=== PATIENT | male | born 1970 | race Caucasian/White ===

== ENCOUNTER 2020-04-04 09:09 | Emergency (ER) | payer BC ==
[2020-04-04] MEDS ORDERED: SODIUM CHLORIDE 0.9% 1000 ML INFUS.BAG IV ONE (09:17)
[2020-04-04] MEDS ORDERED: ONDANSETRON 4 MG/2 ML VIAL IVPUSH ONE (09:17)
[2020-04-04] MEDS ORDERED: morphine CARPU-JECT 4 MG/1 ML DISP.SYRIN IVPUSH ONE (09:17)
[2020-04-04 09:18] VITALS: BP 146/94; PULSE 66; TEMP 98.7; BMI 29.9
[2020-04-04] MEDS ORDERED: ONDANSETRON 4 MG/2 ML VIAL ONE (09:20)
[2020-04-04] MEDS ORDERED: morphine SULFATE 4 MG/ML VIAL ONE (09:20)
--- NOTE | 2020-04-04 09:21 | PDOC ---
History of Present Illness - General Chief Complaint: Pain Stated Complaint: LEFT FLANK PAIN Time Seen by Provider: 04/04/20 09:16 History Source: Patient Exam Limitations: No Limitations - History of Present Illness Initial Comments: 04/04/20 09:19 49-year-old male no past medical history other than history of previous renal colic here today complaining of sudden onset left flank pain radiating to the front has had some urinary hesitancy and frequency off and on over the last year denies any fevers or chills last night did report change to the color of his urine m that his urine appeared more brown denies any fevers or chills did have vomiting x5 this morning no previous abdominal surgeries no other complaints denies any testicular pain did not take anything for his pain prior to arrival Past History - Medical History Allergies/Adverse Reactions: Allergies Allergy/AdvReac Type Severity Reaction Status Date / Time No Known Allergies Allergy Verified 06/07/13 07:14 Home Medications: Ambulatory Orders NK [No Known Home Medication] 04/04/20 COPD: No Kidney Stones: Yes - Psycho-Social/Smoking History Smoking Status: No Smoking History: Never smoked Years of Tobacco Use: 2 - Substance Abuse Hx (Audit-C & DAST Scrn) How often the patient has a drink containing alcohol: Never Score: In Men: 4 or > Positive; In Women: 3 or > Positive: 0 Screen Result (Pos requires Nsg. Audit-10AR): Negative In the last yr the pt used illegal drug/Rx for NonMed reason: No Score: Yes response is considered Positive: 0 Screen Result (Positive result requires Nsg. DAST-10): Negative Review of Systems - Review of Systems Constitutional: No: Chills Respiratory: No: Cough, Orthopnea, Shortness of Breath Cardiac (ROS): No: Chest Pain, Edema : Yes: Frequency, Flank Pain, Hematuria, Urgency. No: Burning, Testicular Mass, Testicular Swelling Musculoskeletal: Yes: Back Pain. No: Joint Pain Integumentary: No: Bruising, Change in Color All Other Systems: Reviewed and Negative *Physical Exam - Vital Signs Last Vital Signs Temp Pulse Resp BP Pulse Ox 98.7 F 66 15 146/94 100 04/04/20 09:10 04/04/20 09:10 04/04/20 09:10 04/04/20 09:10 04/04/20 09:10 - Physical Exam 04/04/20 09:20 Awake alert no acute distress lungs are clear bilaterally heart is regular 30 murmurs rubs or gallops abdomen is soft nontender there is no CVA tenderness extremities are warm well perfused skin is warm and dry no rash patient is awake alert and oriented x3 ED Treatment Course - LABORATORY CBC & Chemistry Diagram: 04/04/20 09:30 04/04/20 09:30 - RADIOLOGY Radiology Studies Ordered: Category Date Time Status SPIRAL- RENAL-STONE CT [CT] Stat CT Scan 04/04/20 09:18 Ordered Medical Decision Making - Medical Decision Making 04/04/20 09:20 49-year-old male history of prior renal colic here today with left flank pain rating to the groin most likely renal colic differential includes diverticulitis UTI or pyelonephritis plan UA urine culture basic labs IV fluids pain control CT abdomen pelvis to evaluate for CT stone or other pathology 04/04/20 11:40 Patient has a 4 mm left-sided UVJ stone is feeling much improved following his pain medication. Will be given Flomax 0.4 mg to help passage will discharge to home as he states he would like to go home we will give him follow-up with urology on-call Discharge - Discharge Information Problems reviewed: Yes Clinical Impression/Diagnosis: Renal colic on left side Condition: Improved Disposition: HOME - Admission No - Follow up/Referral Referrals: Juana Pearl MD [Staff Physician] - - Patient Discharge Instructions Patient Printed Discharge Instructions: Kidney Stones -- Adult Additional Instructions: tiene un pequeo clculo renal de 4 mm del lado nick en la unin entre el urter y la vejiga. puede lexus ibuprofeno 600 mg cada 8 horas segn sea necesario para el dolor. fiebre, vmitos que empeoran el dolor o cualquier preocupacin. tambin puede lexus Flomax 0.4 mg por noche x 10 solis para ayudar a pasar la kristin. debe hacer un seguimiento con un urlogo. thom referencia para el Dr. Pearl. thom la informacin de referencia para el nmero de telfono y la llamada para ser visto dentro de fran semana. Print Language: SERBIAN - Post Discharge Activity
[2020-04-04 09:37] LABS: EPITHELIAL CELLS FEW /hpf; URINE MUCUS 3+
[2020-04-04 09:52] LABS: BASO % 0.6 % (0-2.0); HEMATOCRIT 45.3 % (35.4-49); HEMOGLOBIN 15.8 GM/dl (11.7-16.9); LYMPH % 13.1 % (8-40); MCH 31.6 pg (25.7-33.7); MCHC 34.8 g/dl (32.0-35.9); MEAN CELL VOLUME 90.8 fl (80-96); MEAN PLT VOLUME 8.8 fl (7.5-11.1); MONO % 4.1 % (3.8-10.2); NEUT % 81.2 % (42.8-82.8); PLATELET COUNT 259 K/MM3 (134-434); RBC 4.99 M/mm3 (4.00-5.60); RDW 11.2 % (11.9-15.9); WHITE BLOOD COUNT 6.9 K/mm3 (4.0-10.8)
[2020-04-04 10:00] LABS: ALBUMIN 4.4 g/dl (3.4-5.0); BILIRUBIN,TOTAL 0.9 mg/dl (0.2-1); CALCIUM 9.2 mg/dl (8.5-10); POTASSIUM 3.7 mmol/L (3.5-5.1); TOT PROT 7.6 g/dl (6.4-8.2)
[2020-04-04] MEDS ORDERED: KETOROLAC TROMETHAMINE 30 MG/1 ML VIAL IVPUSH ONE (10:11)
[2020-04-04] MEDS ORDERED: KETOROLAC TROMETHAMINE 30 MG/1 ML VIAL ONE (10:12)
[2020-04-04] MEDS ORDERED: TAMSULOSIN HCL 0.4 MG CAP PO ONE (11:25)
[2020-04-04] MEDS ORDERED: TAMSULOSIN HCL 0.4 MG CAP ONE (11:49)
== END 2020-04-04 12:02 | disposition home or self-care (01) ==
LOC: FER 09:09
PROC: 3E033NZ Introduction of Analgesics, Hypnotics, Sedatives into Peripheral Vein, Percutaneous Approach (ICD-10-PCS; principal; 2020-04-04)
PROC: 3E033GC Introduction of Other Therapeutic Substance into Peripheral Vein, Percutaneous Approach (ICD-10-PCS; 2020-04-04)
DX: N23 Unspecified renal colic (principal)
CPT/HCPCS: 36415; 74176-TC; 80053; 81003; 81015; 85025; 87086; 99284-25